=== PATIENT | male | born 1960 | race Two or more races ===

== ENCOUNTER 2017-04-10 16:00 | Inpatient (IN) | payer BC ==
[~2017-04-10] VITALS: Ht 165.1 cm; Wt 84.0 kg
--- NOTE | ~2017-04-10 | CATH ---
Cardiac Diagnostic Report Demographics Patient Name DONTAE MAXWELL Date of 1960 Age 56 year(s) Patient Number [id number] Date of Study 04/11/2017 Visit Number [id number] Room Number G6314 [place] [id number] Ht 165.1 cm Wt 83.92 kg Referring Efstratiou Primary Physician Physician Sadie Dickinson MD Performing Efstratiou Secondary Physician Physician Sadie Dickinson MD Diagnostic Efstratiou Assisting Physician Physician Sadie Dickinson MD Interventional Physician First Line Production Supervisor Physician Findings and Conclusions Diagnostic Findings and Conclusion 30% proximal LAD stenosis. Diagnostic Recommendations Control BP, lipids, diabetes. Procedure Description The patient was brought to the diagnostic cardiac catheterization-EP laboratory in the fasting, non-sedated state. Informed consent was obtained in the written and verbal form after the risks and benefits were explained. The patient had no further questions and agreed to proceed. The planned puncture-incision site(s) were shaved and prepped with ChloraPrep and draped in the usual sterile manner. Conscious sedation, supplemental oxygen, and pain control medications were delivered by a registered nurse under physician guidance. Surface ECG rhythm, blood pressure measurement, and pulse oximetry were monitored throughout the procedure. Arterial access. The access site was infiltrated with lidocaine. The vessel was entered with the Seldinger technique. A sheath was advanced into the vessel and used for catheter placement. Selective left coronary angiography. A catheter was advanced into the left coronary vessel ostium under Fluoroscopic guidance. Contrast was injected by hand. Images were obtained in multiple projections. Selective right coronary angiography. A catheter was advanced into the right coronary vessel ostium under fluoroscopic guidance. Contrast was injected by hand. Images were obtained in multiple projections. Left heart catheterization. A catheter was advanced across the aortic valve to the left ventricle under fluoroscopic guidance. Resting hemodynamics were obtained. Arterial artery hemostasis was achieved. The patient was transferred to a regular nursing floor via cart accompanied by a nurse. The patient left the laboratory in stable condition. Diagnostic Cath Status: Urgent Procedure Procedure Type Diagnostic procedure:Angiography:, Coronary Angios w/[facility] Indications: Unstable angina, Hypertension and Shortness of breath. The procedure was explained in detail to the patient. Risks, complications and alternative treatments were reviewed. Written consent was obtained. Medications Reviewed with Patient prior to Procedure. Angiographic Findings Dominance: Left Cardiac Arteries and Lesion Findings LMCA: Normal (0% Stenosis). LAD: Lesion on Prox LAD: 30% stenosis . Lesion on 1st Dia% stenosis . LCx: Normal (0% Stenosis). RCA: Normal (0% Stenosis). Coronary Tree Procedure Data Procedure Date Date: 04/11/2017Start: 10:07 AMEnd: 10:29 AM Entry Locations - Retrograde Percutaneous access was performed through the Right Radial artery (Primary location). A 6 Fr sheath was inserted. Hemostasis was successfully obtained using Mechanical Compression. Closure Comments: 15 cc's of air in R-band applied by Ha.. Procedure Medications Order and Administration + + + + + !Time !Medication !Dosage !Route ! + + + + + !04/11/2017 10:04 AM !Fentanyl !50 mcg !I.V. ! + + + + + !04/11/2017 10:12 AM !Radial Heparin (ACC_3) !2500 units !I.A. ! + + + + + !04/11/2017 10:12 AM !Radial Nitroglycerin !200 mcg !I.A. ! + + + + + !04/11/2017 10:13 AM !Radial Verapamil !3 mg !I.A. ! + + + + + !04/11/2017 10:13 AM !Nitroglycerin !10 mcg/min !I.V. drip ! + + + + + !04/11/2017 10:14 AM !Oxygen !2 l/min !NC ! + + + + + !04/11/2017 10:28 AM !Heparin (ACC_3) ! ! ! + + + + + !04/11/2017 10:06 AM !Versed !1 mg !I.V. ! + + + + + Devices Used - A6 Fr. BS JR 4 Diag. Catheterwas used for:Right coronary angiography. - A6 Fr. BS JL 3.5 Diag. Catheterwas used for:Left coronary angiography. Contrast Material - Isovue 91752 ml Fluoroscopy Time: Diagnostic: 3:12 minutes. Total: 3:12 minutes. Fluoroscopy Dose: Diagnostic: 680 mGy. Total: 680 mGy. Estimated Blood Loss: 15 ml. Medical History Performed Procedures and Imaging Results - No ACC stress or imaging studies were performed. Allergies - Penicillin. Risk Factors The patient risk factors include:treated hypertension, family history of premature CAD, last creatinine: 1.2 mg/dl and creatinine clearance: 80.61 ml/min. Admission Data Admission Date: 04/10/2017 Admission Time: 04:47 PM Insurance Payors: [employer] health insurance. Admission Medications + +------+------+ + + + + !Medication !Dosage!Times !Last !Last !Administered !Comments ! ! ! !Per !Delivery !Delivery ! ! ! ! ! !Day !Date !Time ! ! ! + +------+------+ + + + + !Aspirin ! ! ! ! !Yes ! ! !(any) ! ! ! ! ! ! ! + +------+------+ + + + + !Statin ! ! ! ! !Yes ! ! !(any) ! ! ! ! ! ! ! + +------+------+ + + + + !Beta ! ! ! ! !Yes ! ! !Rd ! ! ! ! ! ! ! !(any) ! ! ! ! ! ! ! + +------+------+ + + + + Clinical Evaluation Leading to Procedure - The patient's CAD presentation was assessed as: Unstable angina. - The patient's anginal syndrome during the past two weeks was assessed as: Class III according to the [place] Cardiovascular Society Classification System (CCS). Anti-anginal medications were prescribed during the past two weeks. The medications are: Beta Blockers and Ca channel Blockers. Snapshots Hemodynamics Condition: Rest O2 Consumption: Estimated: 220.12Heart Rate: 62 bpm Pressures (mmHg) +-----+ + !Site !Pressure ! +-----+ + !LV !138/5 ,8 ! +-----+ + !LV !150/3 ,7 ! +-----+ + !AO !131/79 (104) ! +-----+ + !LV !146/5 ,7 ! +-----+ + Valve Gradients and Areas + +---------+---------+---------+ +---------+ + !Valve !Peak !Mean !Area !Index !Flow !Source ! + +---------+---------+---------+ +---------+ + !Aortic !16 !14 ! ! ! ! ! + +---------+---------+---------+ +---------+ + !Aortic !16 !14 ! ! ! ! ! + +---------+---------+---------+ +---------+ + Shunts Oxygen Values O2 Capacity 186.32 O2 Consumption 220.12 Signatures dtt: Kodak Martinez dtd: 04/11/17 [facility] Physician Self Edyolanda
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
--- NOTE | ~2017-04-10 | ECHO ---
Transthoracic Echocardiography Report (TTE) Demographics Patient Name DONTAE GUEVARA, Date of Study 04/10/2017 POMEROY Patient Number [id number] Visit Number [id number] Date of 1960 Room Number G6314 Gender Male Number Age 56 year(s) Referring Juan Noel Traffic Coordinator Deidre Dickinson MD RDCS, RVT Physician Interpreting Efstrati Certified Medical Coder Physician Sadie Dickinson MD Supervising Ordering [facility]MLP Physician Sadie Dickinson MD Nurse Stress Rf Microwave Engineer Conclusions Contractility Score Summary Normal Left Ventricular contractility was noted. Summary The estimated left ventricular ejection fraction is 60%. Mild concentric left ventricular hypertrophy. Diastolic assessment reveals Grade I diastolic dysfunction. The left atrium is mildly dilated by LA volume index measurement. The aortic root appears mildly dilated. The maximum diameter measures 3.9 cm. Procedure Type of Study TTE procedure:2D Echocardiogram. Procedure Date Date: 04/10/2017 Start: 05:20 PM Study Location: Inpatient Portable Technical Quality: Adequate visualization Indications:Chest pain. Appropriate Use Criteria: 9 Patient Status: Routine HR: 66 bpm BP: 177/108 mmHg M-Mode/2D Measurements LV Diastolic Dimension: 4.91 cm LV Systolic Dimension: 2.9 cm LV Septum Diastolic: 1.11 cm LV PW Diastolic: 1.1 cm AO Root Dimension: 3.9 cm Cardiac Output: 4.54 l/min AV Cusp Separation: 2.3 cm RV Diastolic Dimension: 2.81 cm LA volume: 56 ml LVOT: 1.9 cm RV Base: 3.85 cm LVOT VTI: 24.3 cm RV Mid: 3.19 cm LV Stroke volume: 68.86 ml TAPSE: 3.18 cm TDI-S': 14.5 cm/s Doppler Measurements AV Peak Velocity: 1.47 m/s MV Peak E-Wave: 0.74 m/s AV Peak Gradient: 8.64 mmHg MV Peak A-Wave: 1.06 m/s AV Mean Gradient: 5 mmHg MV E/A Ratio: 0.69 LVOT Peak Velocity: 1.14 m/s MV Deceleration Time: 180 msec TR Velocity:2.46 m/s PV Peak Velocity: 0.98 m/s TR Gradient:24.21 mmHg PV Peak Gradient: 3.85 mmHg Estimated RAP:5 mmHg Estimated PASP: 29.21 mmHg Estimated RVSP: 29 mmHg A' Septal Velocity: 0.09 m/s E' Septal Velocity: 0.05 m/s A' Lateral Velocity: 0.11 m/s E' Lateral Velocity: 0.06 m/s Findings Left Ventricle Mild concentric left ventricular hypertrophy. Diastolic assessment reveals Grade I diastolic dysfunction. Right Ventricle Normal right ventricle structure and function. Left Atrium The left atrium is mildly dilated by LA volume index measurement. Right Atrium The right atrium is mildly dilated. IVC measures 1.42 cm with inspiratory collapse. Mitral Valve Trivial mitral regurgitation by color Doppler. Aortic Valve Normal aortic valve structure and function. Tricuspid Valve Trivial tricuspid regurgitation by color Doppler. Pulmonic Valve Normal pulmonic valve structure and function. Pericardial Effusion No evidence of pericardial effusion. Miscellaneous The aortic root appears mildly dilated. The maximum diameter measures 3.9 cm. Pleural Effusion No evidence of pleural effusion. Contractility Score LV regional wall motion:(0-Non visualized 1-Normal 2-Hypokinesis 3-Akinesis 4-Dyskinesis 5-Aneurysm) Signature dtt: Kodak Martinez dtd: 04/10/17 0504 Physician Self Edit
[2017-04-10 17:36] LABS: CPK 124 IU/L (35-332)
--- NOTE | 2017-04-10 21:46 | NUR ---
56 Y/O MALE ADMITTED FOR UNSTABLE ANGINA & HYPERTENSION. PT STATES HE "WENT TO SEE DO GRACE IN [facility] TODAY AND SHE SENT HIM HERE PER AMBULANCE FOR HIS BLOOD PRESSURE." PT STATES THAT HE HAS BEEN HAVING CHEST PAINS & SHORTNESS OF BREATH FOR THE PAST 3 MONTHS. PT STATES THAT HE HAS CHEST PAINS ABOUT TWICE DAILY THAT LAST APPROX 1-2 MINUTES, CAUSE SOB, BUT DENIES ANY RADIATION INTO HIS NECK, BACK, SHOULDERS OR ARMS. DENIES LIGHTHEADEDNESS OR SWEATING WHEN IT OCCURS. STATES THIS USUALLY OCCURS WHEN HE IS AT WORK. ALLERGIES - PENICILLIN=RASH & HIVES MEDICAL & SURGICAL HISTORY - NO OPERATIONS IN HIS LIFETIME, PT DOES SNORE, HAS HAD TINGLING IN BOTH FEET FOR THE PAST MONTH. PT MOTHER DID OF HEART ISSUES AT THE AGE OF 50. PT ADMITS THAT HE HAS NOT BEEN TO A DOCTOR FORM MANY YEARS UNLESS HE IS SICK/ILL. PT SPEAKS ONLY CENTRAL AFRICAN. REPORT GIVEN TO PT PRIMARY CARE NURSE [place] [facility] ADM EDUCTION DONE
[2017-04-10 22:27] LABS: BASOPHIL % 0.4 %; EOSINOPHIL # 0.3 K/uL (0.0-0.5); EOSINOPHIL % 3.6 %; HEMATOCRIT 39.8 % (37.0-53.0); HEMOGLOBIN 13.7 g/dL (12.0-17.0); IMMATURE GRANULOCYTE % 0.3 %; LYMPHOCYTE # 2.2 K/uL (0.8-4.0); LYMPHOCYTE % 30.6 %; MCH 31.6 pg (27.0-34.0); MCHC 34.4 gm/dL (32.0-36.5); MCV 91.7 fl (83.0-98.0); MONOCYTE # 0.4 K/uL (0.0-1.0); MONOCYTE % 5.3 %; MPV 10.8 fl (9.4-12.4); NEUTROPHIL # (ANC) 4.3 K/uL (1.4-9.0); NEUTROPHIL % 59.8 %; NRBC % 0 /100WBC (0-0.00); PLATELET COUNT 176 K/uL (150-450); RBC 4.34 M/uL (4.00-6.00); RDW-CV 13.3 % (11.9-14.6); WBC 7.2 K/uL (4.0-11.0)
[2017-04-10 22:36] LABS: INR - (THERAPEUTIC) 1.05 (0.92-1.07); PTT 33 SECONDS (25-32)
[2017-04-10 22:45] LABS: CPK 100 IU/L (35-332)
[2017-04-10 22:46] LABS: ALBUMIN 3.3 gm/dL (3.5-5.0); ALK PHOS 65 IU/L (33-138); ALT 26 IU/L (12-78); ANION GAP 9.5 (10.0-19.0); AST 24 IU/L (10-40); BLOOD UREA NITROGEN 19 mg/dL (6-24); CALCIUM 8.1 mg/dL (8.5-10.5); CHLORIDE 111 mMol/L (96-110); CO2 27 mMol/L (22-32); CREATININE 1.2 mg/dL (0.6-1.3); ESTIMATED GFR (MDRD EQUATION) > 60; POTASSIUM 3.5 mMol/L (3.7-5.1); SODIUM 144 mMol/L (135-145); TOTAL BILIRUBIN 0.3 mg/dL (0.0-1.5); TOTAL PROTEIN 6.3 g/dL (6.0-8.4)
--- NOTE | 2017-04-11 02:52 | NUR ---
Pt a/o x4. niuean speaking with some senegalese. diana at bedside. PT SBP started 220/100's. gave po coreg and norvasc x1. Most recent sbp 140's. HR 50-70's nsr. denies cp/sob. does c/o some numbness to r arm post exerction. RA. afebrile. NS at 100. heparin started at 0300 per md order. 4000 unit bolus given. cardiac enzymes have been negative so far. Plan: [facility] at 10am.
[2017-04-11 04:19] LABS: CPK 88 IU/L (35-332)
[2017-04-11 09:49] LABS: CPK 86 IU/L (35-332)
--- NOTE | 2017-04-11 12:33 | NUR ---
1150 Call to Sunita, shipyard painter apprentice, asked if she would be able to come and meet with Paulo and myself this afternoon around 1400 so we could visit about dismissal plans for him when he goes home. Sunita states she will try meeting me at 1400 to go and talk with him. From what nursing says, he is doing fine and will most likely go home tomorrow, but I just want to meet with him to confirm that he has no questions, needs or concerns about going home. CM to continue to follow and assist.
--- NOTE | 2017-04-11 16:22 | NUR ---
Diabetes center note: 1500 Martti stamper blocker services used for bangladeshi speaking only patient for education provided. Consult received, as patient is newly diagnosed with type 2 diabetes, unsure at this time if patient will be dismissed of oral agent. Contour blood sugar meter provided and demonstrated, recommended 2 times per day testing, FBS and 2 hours after a meal. Stressed importance of patient following up with primary care Doctor in [place]. Patient is familiar with diabetes, as he assists his with meter and insulin, as per patient and son. Overview of carb counting/meal planning education provided and instructed on need for on-going education with RD. Patient does ask appropriate questions, spouse is in the room, but does not participate in education. Detailed education provided as guided by the Diabetes Survival Skills Checklist on all topics, a copy is attached to patient's chart. patient states understanding education provided and agrees to follow up with MD and take log book with blood sugar results to MD visit.
--- NOTE | 2017-04-11 16:45 | NUR ---
Significant Event: A/OX3. Sierra Leonean speaking. [id number]. P-50-70s. Afebrile. Room air. R) FA IV saline locked. Up with SBA. R) radial heart cath today. No intervention. Alyssa and hodan C/D/I, CMS WNL 2+ pulse. Diabetic education consulted for new diagnosis of diabetes. Education completed. PAtient denies SOB and chest pain.
--- NOTE | 2017-04-12 04:30 | NUR ---
PT A/O X4. Icelandic speaking. Mary at bedside/family at bedside to inturpret. VSS on RA, afebrile, R radial site benign. Did have some pain at hs- 650 apap and ice pack given- pain subsided. Plan: DC home today
[2017-04-12 05:03] LABS: ANION GAP 12.9 (10.0-19.0); BLOOD UREA NITROGEN 19 mg/dL (6-24); CALCIUM 7.9 mg/dL (8.5-10.5); CHLORIDE 110 mMol/L (96-110); CO2 24 mMol/L (22-32); CREATININE 1.1 mg/dL (0.6-1.3); ESTIMATED GFR (MDRD EQUATION) > 60; POTASSIUM 3.9 mMol/L (3.7-5.1); SODIUM 143 mMol/L (135-145)
--- NOTE | 2017-04-12 13:04 | NUR ---
Stopped by to see Ed, but he was getting ready to leave with his family and orders were already done so I didn't meet with him. Plan home today with no CM needs at this time.
[2017-04-12] MEDS ORDERED: HYDRODIURIL25 MG PO (13:32)
[2017-04-12] MEDS ORDERED: PRINIVIL (ZESTR20 MG PO (13:32)
[2017-04-12] MEDS ORDERED: NORVASC5 MG PO (13:33)
[2017-04-12] MEDS ORDERED: ASPIRIN (CHILDR81 MG PO (13:34)
[2017-04-12] MEDS ORDERED: LIPITOR40 MG PO (13:36)
[2017-04-12] MEDS ORDERED: COREG6.25 MG PO (13:37)
[2017-04-12] MEDS ORDERED: TYLENOL325 MG PO (13:37)
--- NOTE | 2017-04-12 15:43 | NUR ---
Significant Event: A/O x3, cooperative with cares. VSS, SBPs 140-170s, DBPs 80-100s, HRs 50-60s, on room air. No c/o pain. Heart cath site to R) wrist, soft, non-tender. Up in room with SBA to bathroom. Dismissal instructions given to patient with assistance of drafter (cad) electronic; verbalized understanding. Dismissed to front lobby per w/c accompanied by admission nurse et family. Follow up:
== END 2017-04-12 14:40 | disposition disaster alternative care site (69) | DRG 286 ==
LOC: GPCU 16:47
PROVIDERS: ADMIT Internal Medicine Cardiovascular Disease
DX: I16.0 Hypertensive urgency (principal); I50.31 Acute diastolic (congestive) heart failure; I25.110 Atherosclerotic heart disease of native coronary artery with unstable angina pectoris; E11.9 Type 2 diabetes mellitus without complications; E66.9 Obesity, unspecified; I51.7 Cardiomegaly
CPT/HCPCS: C1894; J1644; J2250; J3010; J7030